=== PATIENT | male | born 1990 | race Caucasian/White ===

== ENCOUNTER 2019-07-08 11:52 | Emergency (ER) | payer MEDICAID ==
[~2019-07-08] VITALS: Ht 165.1 cm; Wt 56.7 kg
[2019-07-08 12:00] VITALS: BP_SYST 160
--- NOTE | 2019-07-08 12:15 | NUR ---
PT BIB [facility] FOR [facility] TO [facility].
--- NOTE | 2019-07-08 12:20 | NUR ---
Patient to ER bed H1 to gown for evaluation. Side rails up.
--- NOTE | 2019-07-08 12:25 | NUR ---
ER at bedside examining patient.
[2019-07-08 12:30] VITALS: BP_SYST 160
--- NOTE | 2019-07-08 12:30 | NUR ---
Patient given written and verbal discharge instructions and verbalizes understanding. ER MD discussed with patient the results and treatment provided. Patient in stable condition. ID arm band removed. NO Rx given. Patient educated on pain management and to follow up with PMD. Pain Scale 0. Opportunity for questions provided and answered. Medication side effect fact sheet provided.
== END 2019-07-08 12:30 ==
LOC: SED 11:52
DX: Z02.89 Encounter for other administrative examinations (principal)
CPT/HCPCS: 99283